=== PATIENT | female | born 1985 | race African-American/Black ===

== ENCOUNTER 2019-02-16 17:36 | Observation (INO) | payer MEDICAID ==
[~2019-02-16] VITALS: Ht 162.6 cm; Wt 78.9 kg
[2019-02-16] MEDS ORDERED: PNV1TABL50 MT (23:36)
== END 2019-02-17 00:15 | disposition home or self-care (01) ==
LOC: LAB 17:36 → 8 EST LDRP 22:13
PROVIDERS: ADMIT Obstetrics & Gynecology; ATTEND Obstetrics & Gynecology
DX: Z34.83 Encounter for supervision of other normal pregnancy, third trimester (principal); Z3A.28 28 weeks gestation of pregnancy
CPT/HCPCS: 36415; 86850; 86900; 86901; 90384; 99281; G0378; 96372